=== PATIENT | female | born 1950 | race Caucasian/White ===

== ENCOUNTER 2016-11-14 21:13 | Emergency (ER) | payer OTHER ==
[2016-11-14] MEDS ORDERED: ONDANSETRON HCL/PF 2 MG/ML VIAL IV ONE (21:48)
[2016-11-14] MEDS ORDERED: NORMAL SALINE 1,000 ML IV ONE (21:48)
--- NOTE | 2016-11-14 21:49 | ERNOTE ---
Medical Problem HPI - General Chief Complaint: Nausea/Vomiting Time Seen by Provider: 11/14/16 21:33 Source: patient Exam Limitations: no limitations - Immun/Allergies/Home Medications Immunizations: IMMUNIZATION HX Immunizations Up to Date Yes Allergies/Adverse Reactions: Allergies No Known Allergies Allergy (Verified 11/14/16 21:23) - History of Present History Narrative: Vomiting onset yesterday with right flank pain, today dry heaves and no appetite but no actual vomiting. Timing: constant Severity: mild, moderate Review of Systems - Review of Systems Constitutional: Present: recent illness Gastrointestinal/Abdominal: Present: See HPI. Absent: abdominal pain Genitourinary: Absent: frequency, dysuria Musculoskeletal: Present: back pain - Patient's Past Medical History Patient History - Medical: Diabetes Type 2, Depression, Hypothyroidism Patient History - Cardiac/Respiratory: Hypertension, Hyperlipidemia Patient History - Cancer: No Hx of Cancer Patient History - Surgical Procedures: No surgical history - Social History Living Situations: home Smoking Status: Never smoker Alcohol Use: none Drug Use: none - Immunizations Immunizations Up to Date: Yes Physical Exam - Physical Exam General Appearance: Present: wd/wn, alert, no apparent distress Ears, Nose, Throat: Present: normal ENT inspection Neck: Present: normal inspection, nontender Respiratory: Present: no respiratory distress Cardiovascular/Chest: Present: regular rate, rhythm Gastrointestinal/Abdominal: Present: nontender, soft, no organomegaly, abnormal bowel sounds - hyperactive. Absent: guarding, rebound Back Exam: Present: normal inspection, normal range of motion, no CVA tenderness , no vertebral tenderness Extremity Exam: Present: normal inspection Neurological Exam: Present: alert, oriented, normal mood/affect Skin Exam: Present: normal color, warm/dry Lymphatic Exam: Present: no adenopathy ED Progress - Results and Orders Patient's Lab Results:: I have reviewed the patient's lab results. Results and Orders: Laboratory Tests 11/14/16 11/14/16 11/14/16 21:59 21:59 21:59 WBC 11.6 H Hgb 12.2 L Hct 36.7 L Plt Count 352 Neutrophils % 83.8 H Sodium 139 Plasma Sodium 140 Potassium 4.4 Chloride 103 Carbon Dioxide 22.6 L Anion Gap 17.8 H BUN 27 H Creatinine 1.73 H D Est GFR (Non-Af Amer) 32 L D BUN/Creatinine Ratio 15.6 Random Glucose 189 H Calcium 9.0 Total Bilirubin 0.8 AST 33 ALT 32 Alkaline Phosphatase 43 L Total Protein 8.1 Albumin 3.5 Amylase 72 Lipase 297 Urine Color Yellow Urine Appearance Clear Urine pH 5.5 Ur Specific [place] >=1.030 Urine Protein 30 H Urine Glucose (UA) Negative Urine Ketones Negative Urine Blood 10 H Urine Nitrate Negative Urine Bilirubin Negative Prot Sulfosalicylic Acd 1+ Urine Urobilinogen Normal Ur Leukocyte Esterase Negative Urine RBC None seen Urine WBC 0-5 Ur Epithelial Cells 10-25 H Urine Bacteria 1+ H Waxy Casts Trace Urine Culture Comments No culture indicated - Vital Signs Vital Signs: Vital Signs 11/14/16 21:21 Temperature 36.9 C Pulse Rate 75 Respiratory 16 Rate Blood Pressure 167/93 O2 Sat by Pulse 95 Oximetry - X-Ray X-Ray #1 X-Ray: abdomen Interpretation: Interp. by ny X-ray Comments: non specific bowel gas pattern, non obstructive - CT/Ultrasound CT/Ultrasound Narrative: 1.8 x 1.0 cm stone in the right renal pelvis with associated hydronephrosis and perinephric stranding around the right kidney. punctate stone in the bladder may represent recently passed stone2.5 x 1.6 cm stone in the gallbladder Appendix normal in caliber and retrocecal. Trace fat stranding around appendix - Progress/Reassessment Chief Complaint: Nausea/Vomiting Progress:: Pain free at discharge Departure - Departure Clinical Impression: Kidney stone on right side Gallstone Qualifiers: Cholecystitis presence: without cholecystitis Biliary obstruction: without biliary obstruction Qualified Code(s): K80.20 - Calculus of gallbladder without cholecystitis without obstruction Disposition: Home Follow Up Needed Condition: Good Instructions: Cholelithiasis, Kidney Stones, [id number] Additional Instructions: Drink plenty of water, see Dr. Zaidi as soon as possible to schedule more tests or referrals Referrals: Phil Browne MD [Primary Care Provider] -
[2016-11-14 22:01] LABS: Hematocrit 36.7 % (37.0-47.0); Hemoglobin 12.2 gm/dL (12.5-16.0); Mean Cell Volume 91.1 fl (78-100); Mean Corpuscular Hemoglobin 30.3 pg (27-31); Mean Corpuscular Hgb Conc 33.2 g/dl (32-36); Mean Platelet Volume 10.5 fl (6.0-9.5); Neutrophil # 9.7 K/mm3 (1.3-6.0); Neutrophil % 83.8 % (42-75.0); Platelet Count 352 K/mm3 (150-450); Red Blood Count 4.03 M/mm3 (4.2-5.4); Red Cell Distribution Width 14.1 % (11.5-14.0); White Blood Count 11.6 K/mm3 (4.0-10.5)
[2016-11-14 22:03] LABS: Urine Bilirubin Negative (NEGATIVE); Urine Ketone Negative (NEGATIVE); Urine Nitrite Negative (NEGATIVE); Urine Protein 30 mg/dL (NEGATIVE); Urine Specific Gravity >=1.030 SP.GR. (1.005-1.010); Urine Urobilinogen Normal (NORMAL); Urine pH 5.5 pH (5.0-7.0)
[2016-11-14] MEDS ORDERED: ONDANSETRON HCL/PF 2 MG/ML VIAL ONE (22:12)
[2016-11-14 22:14] LABS: Urine Appearance Clear; Urine Bacteria 1+; Urine Blood 10 /ul (NEGATIVE); Urine Color Yellow; Urine RBC None Seen /hpf (0-5); Urine WBC 0-5 /hpf (0-5); Urine Waxy Cast TRACE /LPF
[2016-11-14 22:17] LABS: Albumin * 3.5 gm/dl (3.4-5.0); Anion Gap 17.8 mmol/L (6.8-13.8); BUN/Creatinine Ratio 15.6 (9.0-21.6); Bilirubin, Total 0.8 mg/dL (0.0-1.1); Ca. Corrected For Albumin 9.1 mg/dL (8.4-10.2); Carbon Dioxide 22.6 mmol/L (24-32.6); Potassium 4.4 mmol/L (3.4-4.6); Total Protein 8.1 gm/dL (6.2-8.2)
[2016-11-15 01:38] VITALS: BP 158/84
== END 2016-11-15 01:26 | disposition home or self-care (01) ==
LOC: ER 21:13
DX: N20.0 Calculus of kidney (principal); K80.20 Calculus of gallbladder without cholecystitis without obstruction

== ENCOUNTER 2016-12-13 11:26 | Day surgery (SDC) | payer OTHER ==
[~2016-12-13 11:26] MED LIST: NORMAL SALINE 1,000 ML IV PRN; ceFAZolin SODIUM 1 GM in DEXTROSE 5 % IN WATER 100 ML IV PRN
[2016-12-13] MEDS ORDERED: NORMAL SALINE 1,000 ML IV ONE (12:45)
--- NOTE | 2016-12-13 14:18 | OR ---
Operative Report - Dictated Report Narrative: Location: Main OR Anesthesia: General Surgeon: Dr. Alva Preoperative diagnosis: Right renal pelvis stone(s) Postoperative diagnosis: Same Procedure: #1 Cystoscopy with Bilateral retrograde pyelograms #2 Right flexible ureteroscopy with holmium laser lithotripsy 7 by multi length double j stent Indications: 66-year-old female very large 1.7 cm right renal pelvis stone with intermittent discomfort. Discussed options and elected to proceed with above- mentioned procedure. Description: Consent obtained. Patient brought to the operating room where general endotracheal anesthesia was induced. Placed in the dorsal lithotomy position. Prepped and draped. Timeout taken. Rigid cystoscope introduced into the bladder with ease and quick cystoscopy revealed no tumors, stones or suspicious lesions . Bilateral retrogrades obtained and interpreted by Dr. Correa. Left ureter identified intubated with 5 Uzbek catheter and left retrograde obtained. 5-7 mL of Isovue was injected. Distal, mid and proximal ureter delicate without filling defects or hydronephrosis. Proximal collecting system nonhydronephrotic, delicate calyces, no filling defects. Essentially normal retrograde. Prompt drainage upon removal of catheter. . Right ureter identified intubated with 5 Uzbek catheter and right retrograde obtained. Distal mid and proximal ureter without hydronephrosis or filling defects. UPJ slightly narrowed compared to rest of ureter but I do not think pathologically so. Contrast bypassed UPJ and a large shadowing filling defect consistent with known renal pelvis stone was present. Not much hydronephrosis. Stone was not visible preinjection making it higher probability of being uric acid. There is a gallstone that is calcified and visible lateral to the kidney. Super Stiff wire was advanced. I was able to introduce a 14/16 access sheath with minimal resistance. Flexible ureteroscope was then used and advanced into the ureter. Stone was encountered in the renal pelvis. 270 micron laser fiber was used. Energy of 0.3-0.6 joules and a rate of 40 hertz was used to fragment the stone into submillimeter pieces. Stone did fragment nicely most of it was dust but there is a lot of debris. Ensuing snowstorm made visualization suboptimal. I did fletcher some of the larger fragments into various calyces hovered in fragmented further. I injected some contrast identifying location of some of the larger fragments and continued to fragment as best I can until visualization became an issue. Truthfully fairly confident majority of stone has been taking care of. There are probably some larger fragments hiding in calyces and again visualization kind the tricky with size of stone and amount of debris also with some mild hematuria. I felt at this point it was in the patient's best interest to abort and place a 7 Uzbek stent. This was done with the safety wire in place using fluoroscopy. Specimen: None EBL: 0 ml Condition: tolerated procedure Important findings: Radiolucent stone possibly uric acid. Successful treatment in the renal pelvis however visualization became an issue. There could be some smaller fragments which Urvashi causing trouble. Follow-up: Next Sunday in [place] for possible second look right ureteroscopy with further fragmentation and downsizing versus retrograde and stent removal depending on the intraoperative findings. I am going to place her on alkalinization therapy empirically just in case it is uric acid may get some dissolution over the next week.
[2016-12-13 16:22] VITALS: BP 128/66
== END 2016-12-13 11:27 | disposition home or self-care (01) ==
LOC: AMB 11:26
PROVIDERS: ATTEND Urology
PROC: 0T768DZ Dilation of Right Ureter with Intraluminal Device, Via Natural or Artificial Opening Endoscopic (ICD-10-PCS; 2016-12-13)
PROC: 0TF38ZZ Fragmentation in Right Kidney Pelvis, Via Natural or Artificial Opening Endoscopic (ICD-10-PCS; principal; 2016-12-13 13:40)
DX: N20.0 Calculus of kidney (principal); E66.9 Obesity, unspecified; Z68.31 Body mass index [BMI] 31.0-31.9, adult

== ENCOUNTER 2016-12-20 11:59 | Day surgery (SDC) | payer OTHER ==
[~2016-12-20 11:59] MED LIST changes: +KETOROLAC TROMETHAMINE 15 MG/ML VIAL IV PRN; +MORPHINE SULFATE 2 MG/ML DISP.SYRIN IV PRN; +oxyCODONE HCL/ACETAMINOPHEN 1 TAB TABLET PO PRN
[2016-12-20] MEDS ORDERED: NORMAL SALINE 1,000 ML IV ONE (12:38)
--- NOTE | 2016-12-20 14:13 | OR ---
Operative Report - Dictated Report Narrative: Location: Main OR Anesthesia: General Surgeon: Dr. Alva Preoperative diagnosis: Right renal stone fragments Postoperative diagnosis: Same Procedure: #1 Cystoscopy with removal of previously placed 7 Swedish right double-J stent with placement of new 5 by multi length right double-J stent #2 right flexible ureteroscopy with holmium laser lithotripsy and basket extraction of fragments and laser fragment Indications: 66-year-old female with 1.7 cm renal pelvis stone post ureteroscopy with laser. A lot of debris and concern for possible fragments that could cause trouble so we discussed options patient elected to proceed with second look ureteroscopy as a means to further fragment stone and stent downsizing is a means to pass as much debris she can without hopefully getting into trouble. Description: Consent obtained. Patient brought to the operating room where general endotracheal anesthesia was induced. Placed in the dorsal lithotomy position. Prepped and draped. Timeout taken. Rigid cystoscope introduced into the bladder with ease right 7 Swedish stent identified grasped pulled per urethra. Super Stiff wire advanced without incident. Stent removed. Wire secured. Small flexible ureteroscope was then used and advanced into the ureter. I was able to get all the way out without any incident. The ureter had passively dilated very nicely. Upon entering kidney Coombs nephroscopy carried out in the lower pole was a significant collection of debris some of those fragments were larger. Upper and lateral calyces were completely stone free. Patient had successfully passed quite a bit of the debris at this point already. 200 laser fiber was brought in and using an energy of 0.4 and 40 I was able to fragment the bigger pieces. This resulted in the collection of very small fragments in the lower pole calyx. I increased the energy to 0.6 and 40 and continued to fragment for a while with good fragmentation and everything appearing submillimeter. Coombs nephroscopy was carried out yet again the make sure no larger fragments had migrated out of the lower pole and indeed this was the case. There was a lot of dusted at this point all visible stone is submillimeter. I return to the lower pole calyx and there were a few fragments of the bottom that were slightly larger. I I hovered for a few minutes and continued to fragment however it one laser tip came loose and fell into the lower pole. Looked like a roughly half inch piece of fiber. I removed the laser from the scope and it looked like somehow the laser had melted within the scope and a fragment fell into the kidney. I brought in the basket and I was able to grasp the tip and keep it oriented in a straight line with the scope. I withdrew it down the ureter slowly keeping lumen in view and I was able to get into the bladder easily without any resistance and in its entirety. I dropped it in the bladder and then used the cystoscope to retrieve the fragment. 5 by multi length double-J stent deployed over the wire. Bladder drained. Her was a lot of debris already in the bladder during the ureteroscopy that it made its way down. Specimen: None obtained during surgery EBL: 0 ml Condition: tolerated procedure Important findings: Successfully treated stone fragments. There were several that approached 3-4 mm that were well fragmented. In retrospect I do think she would've gotten trouble with those fragments. Fragmentation of laser during treatment with successful extraction of piece. Follow-up: Next Sunday in for flexible cystoscopy and stent removal. No anesthesia. Cipro 500 mg by mouth recreation counselor to the OR.
[2016-12-20 15:54] VITALS: BP 130/69
== END 2016-12-20 12:00 | disposition home or self-care (01) ==
LOC: AMB 11:59
PROVIDERS: ATTEND Urology
PROC: 0TF38ZZ Fragmentation in Right Kidney Pelvis, Via Natural or Artificial Opening Endoscopic (ICD-10-PCS; principal; 2016-12-20 13:40)
PROC: 0T768DZ Dilation of Right Ureter with Intraluminal Device, Via Natural or Artificial Opening Endoscopic (ICD-10-PCS; 2016-12-20 13:40)
DX: N20.0 Calculus of kidney (principal); E66.9 Obesity, unspecified; Z68.31 Body mass index [BMI] 31.0-31.9, adult

== ENCOUNTER 2016-12-27 13:12 | Day surgery (SDC) | payer OTHER ==
[~2016-12-27 13:12] MED LIST changes: +CIPROFLOXACIN HCL 500 MG TABLET PO PRN; -KETOROLAC TROMETHAMINE 15 MG/ML VIAL IV PRN; -MORPHINE SULFATE 2 MG/ML DISP.SYRIN IV PRN; -NORMAL SALINE 1,000 ML IV PRN; -ceFAZolin SODIUM 1 GM in DEXTROSE 5 % IN WATER 100 ML IV PRN; -oxyCODONE HCL/ACETAMINOPHEN 1 TAB TABLET PO PRN
[2016-12-27] MEDS ORDERED: LEVOFLOXACIN 500 MG TABLET PO PRN (14:06)
--- NOTE | 2016-12-27 14:17 | OR ---
Operative Report - Dictated Report Narrative: Preoperative diagnosis: Indwelling stent Postoperative diagnosis: Same Anesthesia: None Procedure: Flexible cystoscopy with stent removal Indications: Indwelling stent Descritpion: Consent obtained. Patient prepped and drapped. Lidocaine jelly used to anesthetize urethra. Flexible scope inserted and navigated to bladder. Stent identified, grasped and pulled per urethra. Patient tolerated. EBL: 0 ml Specimen: None Condition: Tolerated procedure Follow-up: 6 weeks with [facility] for dietary recks/stone results. I don't have stone yet. Suspect uric acid. On potassium citrate.
[2016-12-27 16:50] VITALS: BP 148/78
== END 2016-12-27 13:13 | disposition home or self-care (01) ==
LOC: AMB 13:12
PROVIDERS: ATTEND Urology
PROC: 0TP98DZ Removal of Intraluminal Device from Ureter, Via Natural or Artificial Opening Endoscopic (ICD-10-PCS; principal; 2016-12-27 14:50)
DX: Z46.6 Encounter for fitting and adjustment of urinary device (principal); E66.9 Obesity, unspecified; Z68.31 Body mass index [BMI] 31.0-31.9, adult